=== PATIENT | male | born 1945 | race African-American/Black ===

== ENCOUNTER 2016-09-20 19:21 | Outpatient (CLI) | payer MEDICARE, OTHER | END 2016-09-20 19:22 | disposition home or self-care (01) | LOC: NAV LABSP 19:21 | PROVIDERS: ATTEND Internal Medicine | DX: N18.6 End stage renal disease (principal); K75.0 Abscess of liver | CPT/HCPCS: 87070 ==

== ENCOUNTER 2017-09-18 11:31 | Emergency (ER) | payer MEDICARE, OTHER ==
[2017-09-18 12:53] LABS: Band 1 % (5-11); Eosinophils 3 % (0-10); Hemoglobin 11.6 g/dL (14.0-18.0); Hypochromia MODERATE=16-30 cells (100X) (0-5/hpf); Lymphocytes 5 % (21-51); MDiff Complete? YES; Mean Corpuscular HGB CONC 28.8 g/dL (32.0-36.0); Mean Corpuscular Hemoglobin 28.6 pg (27.0-31.0); Mean Corpuscular Volume 99.3 fl (80.0-94.0); Mean Platelet Volume 11.1 fL (7.4-10.4); Monocytes 2 % (0-10); Neutrophil 86 % (42-75); PLT Morphology Comment Appears Decreased; Platelet Count 96 thou/uL (130-400); RBC Distribution Width 13.5 % (11.5-14.5); Reactive Lymphocytes 3 % (0-10); Red Blood Cell (RBC) Count 4.05 mill/uL (4.70-6.10); White Blood Cell (WBC) Count 11.3 thou/uL (4.8-10.8)
[2017-09-18 12:59] LABS: ALT (SGPT) 23 U/L (8-55); AST (SGOT) 40 U/L (5-34); Albumin 3.5 g/dL (3.4-4.8); Alkaline Phosphatase 265 U/L (40-150); Anion Gap 18 mmol/L (10-20); BUN (Urea Nitrogen) 43 mg/dL (8.4-25.7); Calc. Creatinine Clearance 0 mL/min (70-130); Calcium 8.3 mg/dL (7.8-10.44); Carbon Dioxide 32 mmol/L (23-31); Chloride 91 mmol/L (98-107); Estimated GFR-MDRD 12; Globulin 3.6 g/dL (2.4-3.5); Glucose 77 mg/dL (80-115); Potassium 4.9 mmol/L (3.5-5.1); Protein, Total 7.1 g/dL (5.8-8.1); Sodium 136 mmol/L (136-145)
[2017-09-18 13:00] LABS: CKMB 2.8 ng/mL (0-6.6); Troponin I 0.081 ng/mL (< 0.028)
--- NOTE | 2017-09-18 13:38 | RAD ---
2 VIEWS CHEST: Date: 09/18/17 COMPARISON: 07/19/15. HISTORY: Shortness of breath and fever. FINDINGS: Two views of the chest show an enlarged cardiomediastinal silhouette. The pacemaker is unchanged in p osition. Diffuse increased interstitial lung markings are seen. Hyperexpansion of the lungs is likely secondary to COPD. There is no evidence of consolidation, mass, or pleural effusion. IMPRESSION: No evidence of acute cardiopulmonary disease. POS: [facility]
== END 2017-09-18 13:55 | disposition home or self-care (01) ==
LOC: NAV ERS 11:31
DX: J44.1 Chronic obstructive pulmonary disease with (acute) exacerbation (principal); I13.2 Hypertensive heart and chronic kidney disease with heart failure and with stage 5 chronic kidney disease, or end stage renal disease; N18.6 End stage renal disease; I50.9 Heart failure, unspecified; K21.9 Gastro-esophageal reflux disease without esophagitis; F41.9 Anxiety disorder, unspecified; F32.9 Major depressive disorder, single episode, unspecified; Z79.899 Other long term (current) drug therapy
CPT/HCPCS: 71046; 80053; 82553; 83605; 83880; 84484; 85025; 93005; J7620

== ENCOUNTER 2017-09-20 16:39 | Emergency (ER) | payer MEDICARE, OTHER ==
[2017-09-20 18:16] LABS: CKMB 2.9 ng/mL (0-6.6)
[2017-09-20 18:20] LABS: Hemoglobin 12.9 g/dL (14.0-18.0); Mean Corpuscular HGB CONC 28.2 g/dL (32.0-36.0); Mean Corpuscular Hemoglobin 27.7 pg (27.0-31.0); Mean Corpuscular Volume 98.2 fl (80.0-94.0); Mean Platelet Volume 10.4 fL (7.4-10.4); Platelet Count 162 thou/uL (130-400); RBC Distribution Width 13.7 % (11.5-14.5); Red Blood Cell (RBC) Count 4.65 mill/uL (4.70-6.10); White Blood Cell (WBC) Count 15.5 thou/uL (4.8-10.8)
[2017-09-20 18:31] LABS: ALT (SGPT) 84 U/L (8-55); AST (SGOT) 472 U/L (5-34); Albumin 3.4 g/dL (3.4-4.8); Alkaline Phosphatase 191 U/L (40-150); Anion Gap 34 mmol/L (10-20); BUN (Urea Nitrogen) 64 mg/dL (8.4-25.7); Bilirubin, Total 3.7 mg/dL (0.2-1.2); Calc. Creatinine Clearance 0 mL/min (70-130); Calcium 8.1 mg/dL (7.8-10.44); Carbon Dioxide 15 mmol/L (23-31); Chloride 93 mmol/L (98-107); Estimated GFR-MDRD 11; Globulin 4.3 g/dL (2.4-3.5); Glucose 61 mg/dL (80-115); Potassium 5.7 mmol/L (3.5-5.1); Protein, Total 7.7 g/dL (5.8-8.1); Sodium 136 mmol/L (136-145)
--- NOTE | 2017-09-20 18:31 | RAD ---
PORTABLE SEMIUPRIGHT FRONTAL CHEST RADIOGRAPH 09/20/17 COMPARISON: 07/29/15, 09/18/17. HISTORY: Fall, trauma, pain. FINDINGS: There is new dense consolidative change involving the lateral aspect of the right lower lobe inferior ly. Heart and mediastinal contours are stable. Stable single lead AICD. Persistent patchy air space d isease noted further superiorly within the right upper lobe. IMPRESSION: Worsening opacity within the right upper lobe with new focal consolidation within the inferior latera l aspect of the right upper lobe suggesting worsening infectious pneumonitis/aspiration. Followup sowmya ging following treatment to document resolution is advised. POS: [facility]
[2017-09-20] MEDS ORDERED: cefTRIAXone\\ROCEPHIN 1 GM VIAL ONE (18:32)
[2017-09-20] MEDS ORDERED: Sodium Chloride 0.9% 1,000 ML ONE (18:32)
[2017-09-20 19:01] LABS: Band 3 % (5-11); Hypochromia SLIGHT = 6-15 cells (100X) (0-5/hpf); Lymphocytes 24 % (21-51); MDiff Complete? YES; Monocytes 6 % (0-10); Neutrophil 67 % (42-75); PLT Morphology Comment Appears Adequate
[2017-09-20 19:07] LABS: Troponin I 0.149 ng/mL (< 0.028)
[2017-09-20 19:31] LABS: CK (CPK) 148 U/L (30-200)
== END 2017-09-20 20:01 | disposition short-term general hospital (02) ==
LOC: NAV ERS 16:39
DX: J18.9 Pneumonia, unspecified organism (principal); J44.9 Chronic obstructive pulmonary disease, unspecified; D72.829 Elevated white blood cell count, unspecified; K21.9 Gastro-esophageal reflux disease without esophagitis; I13.2 Hypertensive heart and chronic kidney disease with heart failure and with stage 5 chronic kidney disease, or end stage renal disease; I50.9 Heart failure, unspecified; N18.6 End stage renal disease; Z99.2 Dependence on renal dialysis; F41.9 Anxiety disorder, unspecified; F32.9 Major depressive disorder, single episode, unspecified; Z79.899 Other long term (current) drug therapy
CPT/HCPCS: 36416; 71045; 80053; 82553; 83605; 83880; 84484; 85025; 87040; 93005; 94640; 96361; 96374; J0696; J7050; J7620